=== PATIENT | male | born 1995 | race Hispanic/Latino ===

== ENCOUNTER 2017-04-27 06:16 | Day surgery (SDC) | payer MEDICAID ==
[~2017-04-27] VITALS: Ht 182.9 cm; Wt 106.6 kg
[2017-04-27] MEDS ORDERED: PERCOCET 5/325M1 TAB PO (09:45)
[2017-04-27 10:49] VITALS: BP 133/77
== END 2017-04-27 11:10 | disposition home or self-care (01) | DRG 352 ==
LOC: ORM 06:16
PROVIDERS: ATTEND Surgery
PROC: 0YU50JZ Supplement Right Inguinal Region with Synthetic Substitute, Open Approach (ICD-10-PCS; principal; 2017-04-27)
DX: K40.90 Unilateral inguinal hernia, without obstruction or gangrene, not specified as recurrent (principal)